=== PATIENT | female | born 1965 | race Caucasian/White ===

== ENCOUNTER → 2018-02-17 | Outpatient (CLI) | payer OTHER ==
[2014-03-12 22:45] VITALS: BP 118/71
[~2018-02-17] MED LIST: ALPR0.5T PO; CIME200T6 PO; CYCL-331 PO; DIPH25CA58 PO; EPIN0.3A4 IJ; FENO160T PO; FLUT16SP2 NS; HYDR-2758 PO; HYDR25TA PO; INSU100V31 SQ; INSU100V8 SQ; LIRA0.6P SQ; LISI-338 PO; LOVA40TA2 PO; METH4TAB PO; NAPR-514 PO; PRED5TAB PO
--- NOTE | 2018-02-17 17:38 | RAD ---
Thyroid ultrasound dated 02/17/2018. No comparison available. Clinical indication: Evaluate thyroid nodules. FINDINGS: Right lobe thyroid gland measures 5.9 x 2.0 x 3.17 m. Left lobe measures 5.7 x 1.5 x 2.0 cm. There are small solid nodules at the upper pole of each thyroid lobe, measuring 6 mm on the left and 5 mm in the right. Thyroid isthmus unremarkable. IMPRESSION: Small solid-appearing bilateral thyroid nodules, nonspecific. Electronically signed by: Basilio Rodríguez MD (02/17/2018 5:35 PM) [facility]
== END | disposition home or self-care (01) ==
LOC: US 13:33
PROVIDERS: ATTEND Nurse Practitioner Family
DX: E04.2 Nontoxic multinodular goiter (principal)
CPT/HCPCS: 76536